=== PATIENT | male | born 1990 | race Caucasian/White ===

== ENCOUNTER → 2016-09-18 | Outpatient (CLI) | payer OTHER ==
[~2016-09-18] MED LIST: IBUP-1114 PO; IBUP80TA PO
[2016-09-25 08:06] LABS: D001-IgE D pteronyssinus 0.23 kU/L (Class 0/I); E001-IgE Cat Epith/Dander 1.43 kU/L (Class III); E005-IgE Dog Dander 6.81 kU/L (Class IV); G002-IgE Bermuda Grass 1.82 kU/L (Class III); M001-IgE Penicillium chrysogen < 0.10 kU/L (Class 0); M002 IgE Cladosporium herbaru 0.14 kU/L (Class 0/I); M006-IgE Alternaria alternata 8.97 kU/L (Class IV); T001-IgE Maple/Box Elder 1.65 kU/L (Class III); T007-IgE Oak, White 4.14 kU/L (Class IV); T008-IgE Elm, American 3.19 kU/L (Class III); T015-IgE Ash, White 2.89 kU/L (Class III); T041-IgE Hickory, White 1.74 kU/L (Class III); W001-IgE Ragweed, Short 0.75 kU/L (Class II); W009-IgE Plantain, English 1.81 kU/L (Class III); W014-IgE Pigweed, Rough 1.22 kU/L (Class II); W018-IgE Sheep Sorrel 1.77 kU/L (Class III)
== END ==
LOC: M SMT 10:10
PROVIDERS: ATTEND Nurse Practitioner Adult Health
DX: J45.40 Moderate persistent asthma, uncomplicated (principal)

== ENCOUNTER 2017-01-04 20:43 | Emergency (ER) | payer OTHER ==
[~2017-01-04] VITALS: Ht 175.3 cm; Wt 79.5 kg
[2017-01-04 20:51] VITALS: BP 127/83
[2017-01-04] MEDS ORDERED: IBUP-1114 PO (20:56)
[2017-01-04] MEDS ORDERED: IBUPROFEN 800 MG TAB PO ONE (23:00)
[2017-01-04] MEDS ORDERED: OXYCODONE/APAP 5MG/325MG(BULK FOR ED) 1 TABLET PO ONE (23:00)
[2017-01-04] MEDS ORDERED: IBUP80TA PO (23:04)
--- NOTE | 2017-01-05 08:11 | ECGEPIP ---
Stationary ECG Study [facility] - ED Test Date: 2017-01-04 Pat Name: JOHN BLACK Department: Room: - Gender: M Supervisor Pipeline: : 1990 Requested By: MAYRA Kevin Order Number: [id number] Reading MD: Kandi Roman Measurements Intervals [place] Rate: 62 P: 48 OK: 130 QRS: 11 QRSD: 97 T: 25 QT: 369 QTc: 376 Interpretive Statements SINUS RHYTHM POSSIBLE RIGHT VENTRICULAR CONDUCTION DELAY NO PRIOR FOR COMPARISON Electronically Signed On 01-05-2017 8:11:15 EDT by Kandi Roman
== END 2017-01-04 23:33 | disposition home or self-care (01) ==
LOC: M ED 20:43
DX: R07.89 Other chest pain (principal); J45.909 Unspecified asthma, uncomplicated; Z91.048 Other nonmedicinal substance allergy status

== ENCOUNTER 2017-02-24 12:45 | Emergency (ER) | payer OTHER ==
[~2017-02-24] VITALS: Ht 175.3 cm; Wt 79.5 kg
[2017-02-24 12:56] VITALS: BP 144/73
[2017-02-24] MEDS ORDERED: TYLE325T5 PO (12:56)
[2017-02-24] MEDS ORDERED: ONDANSETRON 4 MG ORAL DISINTEGRATING TAB (S0181) PO ONE (13:15)
--- NOTE | 2017-02-24 13:34 | REP ---
Head CT without contrast: History: Trauma to the top of the head. Comparison study: No comparison study. CT findings: Bone window settings demonstrate an intact bony calvarium. There is no evidence of skull fracture or incidental bony calvarial lesion. The visualized paranasal sinuses appear clear. No intraorbital abnormality is seen. On soft tissue window setting images; the lateral, third, and fourth ventricles are normal in size and position. Alexander-white differentiation pattern is normal above and below the tentorium. There are is no evidence of intracranial hemorrhage. No mass, edema, infarction, or midline shift is seen. No extra-axial fluid collection is appreciated. Impression: Negative noncontrast head CT. Signed by Pedro Stover MD 02/24/2017 01:26 P
--- NOTE | 2017-02-24 13:42 | REP ---
Cervical spine CT study without contrast: History: Trauma. Technique: Helical scanning is acquired. 2 mm axial images are reformatted along with multiplanar re-formation images in the sagittal and coronal imaging planes. CT findings: Preliminary digital side laster staple radiograph is unremarkable. There is straightening of the normal cervical lordosis. Cervical vertebral body heights are preserved. Facet joints are normally aligned at each cervical level. Alignment is intact. There is no evidence of cervical spine fracture or subluxation. No intraspinal or paraspinal hematoma is appreciated. No significant soft tissue finding. There is mucosal thickening in the inferior aspect of the maxillary sinuses on both sides noted incidentally. Impression: Bilateral maxillary sinus mucosal changes. Straightening. Otherwise negative. No fracture or other traumatic abnormality noted. Signed by Pedro Stover MD 02/24/2017 03:02 P
[2017-02-24] MEDS ORDERED: ROBA750T4 PO (13:52)
[2017-02-24] MEDS ORDERED: IBUP-1022 PO (13:52)
[2017-02-24] MEDS ORDERED: ZOFR4TAB3 PO (13:52)
--- NOTE | 2017-02-25 07:36 | ED PDOC ---
Post-Departure Follow-Up certified letter sent to patient regarding radiology report Kandi Roman MD Feb 25, 2017 07:36
== END 2017-02-24 13:58 | disposition home or self-care (01) ==
LOC: EDBD 12:45 → M ED 12:45
DX: S13.4XXA Sprain of ligaments of cervical spine, initial encounter (principal); S06.0X0A Concussion without loss of consciousness, initial encounter; V00.318A Other snowboard accident, initial encounter; Y92.9 Unspecified place or not applicable; Y93.23 Activity, snow (alpine) (downhill) skiing, snowboarding, sledding, tobogganing and snow tubing; Y99.9 Unspecified external cause status; J30.2 Other seasonal allergic rhinitis; J30.81 Allergic rhinitis due to animal (cat) (dog) hair and dander

== ENCOUNTER 2017-05-09 10:52 | Emergency (ER) | payer OTHER | END 2017-05-09 12:21 | disposition left against medical advice (07) | LOC: M ED 10:52 | DX: S10.86XA Insect bite of other specified part of neck, initial encounter (principal); X58.XXXA Exposure to other specified factors, initial encounter; Y92.9 Unspecified place or not applicable; Y93.9 Activity, unspecified; Y99.9 Unspecified external cause status; Z53.21 Procedure and treatment not carried out due to patient leaving prior to being seen by health care provider ==